=== PATIENT | male | born 1975 | race Caucasian/White ===

== ENCOUNTER 2019-08-11 18:46 | Emergency (ER) | payer BC, OTHER ==
[2019-08-11] MEDS ORDERED: Naproxen 500 MG Tab PO ONE (19:03)
--- NOTE | 2019-08-11 19:06 | EDM.PDOC ---
ED HPI GENERAL MEDICAL PROBLEM - General Chief Complaint: Lower Extremity Injury/Pain Stated Complaint: LEFT LEG BROKEN Time Seen by Provider: 08/11/19 18:59 - History of Present Illness INITIAL COMMENTS - FREE TEXT/NARRATIVE: History of present illness: [] The patient was brought by police who found him on the road. He said he lives very close and was walking toward the hospital. He fell 20 minutes ago with no loss of consciousness. He is not on a blood thinner. He complains of pain in the left leg below the knee. The patient has 5 days off work and is planning to rest. He needs to know if it is broken so he knows if he can go back to work. He also complains of excruciating pain in the mid lateral left leg. Review of systems: As per history of present illness and below otherwise all systems reviewed and negative. Past medical history: As per history of present illness and as reviewed below otherwise noncontributory. Surgical history: As per history of present illness and as reviewed below otherwise noncontributory. Social history: No reported history of drug or alcohol abuse. Family history: As per history of present illness and as reviewed below otherwise noncontributory. Physical exam: General patient is in no acute distress Integument patient has superficial abrasions over the knees on both lower extremities. Musculoskeletal the patient has tenderness along the medial upper leg on the left lower extremity and tenderness with swelling at the left lateral malleolus. HEENT: Atraumatic, normocephalic, pupils reactive, negative for conjunctival pallor or scleral icterus, mucous membranes moist, throat clear, neck supple, nontender, trachea midline. Lungs: Clear to auscultation, breath sounds equal bilaterally, chest nontender. Heart: S1S2, regular, negative for clicks, rubs, or JVD. Abdomen: Soft, nondistended, nontender. Negative for masses or hepatosplenomegaly. Negative for costovertebral tenderness. Pelvis: Stable nontender. Genitourinary: Deferred. Rectal: Deferred. Extremities: Atraumatic, negative for cords or calf pain. Neurovascular unremarkable. Neuro: Awake, alert, oriented. Cranial nerves II through XII unremarkable. Cerebellum unremarkable. Motor and sensory unremarkable throughout. Exam nonfocal. Diagnostics: [] Therapeutics: [] Impression: [] Plan: [] Definitive disposition and diagnosis as appropriate pending reevaluation and review of above. Left leg Pain Score (Numeric/FACES): 10 - Related Data Allergies Allergy/AdvReac Type Severity Reaction Status Date / Time No Known Allergies Allergy Verified 08/11/19 19:01 Home Meds: Home Meds . [No Known Home Meds] 08/11/19 [History] Past Medical History - Past Health History Medical/Surgical History: Denies Medical/Surgical History HEENT History: Reports: None Cardiovascular History: Reports: None Respiratory History: Reports: None Gastrointestinal History: Reports: None Genitourinary History: Reports: None Musculoskeletal History: Reports: Back Pain, Chronic, Other (See Below) Other Musculoskeletal History: hip dislocation, hand fracture Neurological History: Reports: None Psychiatric History: Reports: Suicide Attempt, Suicidal Ideation Other Psychiatric History: age 16 for SI. Endocrine/Metabolic History: Reports: None Hematologic History: Reports: None Immunologic History: Reports: None Oncologic (Cancer) History: Reports: None Dermatologic History: Reports: None - Past Surgical History Head Surgeries/Procedures: Reports: None HEENT Surgical History: Reports: None Cardiovascular Surgical History: Reports: None Respiratory Surgical History: Reports: None GI Surgical History: Reports: None Male Surgical History: Reports: Vasectomy Endocrine Surgical History: Reports: None Neurological Surgical History: Reports: None Musculoskeletal Surgical History: Reports: None Oncologic Surgical History: Reports: None Social & Family History - Family History Family Medical History: Noncontributory Endocrine/Metabolic: Reports: Diabetes, type II - Caffeine Use Caffeine Use: Reports: Coffee Review of Systems - Review of Systems Review Of Systems: See Below ED EXAM, GENERAL - Physical Exam Exam: See Below Course - Vital Signs Last Recorded V/S: Last Vital Signs Temp 97.0 F 08/11/19 19:01 Pulse 87 08/11/19 19:01 Resp 18 08/11/19 19:01 BP 115/71 08/11/19 19:01 Pulse Ox 97 08/11/19 19:01 - Orders/Labs/Meds Orders: Active Orders 24 hr Category Date Time Status Communication Order [RC] STAT Care 08/11/19 19:42 Active DME for Discharge [COMM] Stat Oth 08/11/19 19:44 Ordered Meds: Medications Discontinued Medications Generic Name Dose Route Start Last Admin Trade Name Freq PRN Reason Stop Dose Admin Naproxen 500 mg 08/11/19 19:03 08/11/19 19:09 Naprosyn PO 08/11/19 19:04 500 mg ONETIME ONE Administration - Radiology Interpretation Free Text/Narrative:: The fibular fracture is noted by the radiologist is seen in the proximal fibula that extends about more than one third of the distance distally. Is nondisplaced. To me the medial joint is slightly widened making this a high probability of a Maisonnneuve fracture. Discussed with Dr. Martin on orthopedics and he agreed to follow-up the patient in 4 days. Discharged with a long leg splint and crutches. Splint was checked after application and it is properly placed neurovascular structures intact with pink toes that he can feel. Patient understands importance of having his help him so he is nonweightbearing and follow him up in 4 days before he goes back to work. Departure - Departure Time of Disposition: 19:57 Disposition: Home, Self-Care 01 Condition: Good Clinical Impression: Maisonneuve fracture, Fracture of fibula - Discharge Information Instructions: Crutch Use, Adult, [id number], Cast or Splint Care, Adult, Easy -to-Read Referrals: Filippo Hernandez MD [Primary Care Provider] - Meño Martin MD [Physician] - 08/16/19 (Dr. Martin wanted to call the office and be seen on Thursday of next week and 4 days.) Forms: ED Department Discharge Sepsis Event Note - Evaluation Sepsis Screening Result: No Definite Risk - Focused Exam Vital Signs: Vital Signs Temp Pulse Resp BP Pulse Ox 08/11/19 19:01 97.0 F 87 18 115/71 97 Date Exam was Performed: 08/11/19 Time Exam was Performed: 20:01 - My Orders Last 24 Hours: My Active Orders 08/11/19 19:42 Communication Order [RC] STAT 08/11/19 19:44 DME for Discharge [COMM] Stat - Assessment/Plan Last 24 Hours: My Active Orders 08/11/19 19:42 Communication Order [RC] STAT 08/11/19 19:44 DME for Discharge [COMM] Stat
--- NOTE | 2019-08-11 19:40 | CR ---
Left tibia and fibula: AP and lateral views left tibia and fibula were obtained. Oblique nondisplaced fracture is identified within the proximal fibula involving the proximal diaphysis and metaphysis. No additional fracture or other bony abnormality is appreciated. Impression: 1. Proximal fibular fracture as noted above. Diagnostic code #3 Study was dictated in MDT
--- NOTE | 2019-08-11 19:40 | CR ---
Left ankle: 4 views left ankle were obtained. Ankle mortise is symmetric. No fracture, dislocation or other bony abnormality is seen. Impression: 1. No abnormality is identified on left ankle study. Diagnostic code #1 Study was dictated in MDT
[2019-08-11 20:25] VITALS: BP 120/78; PULSE 76
== END 2019-08-11 20:26 | disposition home or self-care (01) ==
LOC: MW.ED 18:46
DX: S82.862A Displaced Maisonneuve's fracture of left leg, initial encounter for closed fracture (principal); S82.832A Other fracture of upper and lower end of left fibula, initial encounter for closed fracture; S80.212A Abrasion, left knee, initial encounter; S80.211A Abrasion, right knee, initial encounter; W10.9XXA Fall (on) (from) unspecified stairs and steps, initial encounter
CPT/HCPCS: 29505; 73590; 73610; 99283; A9270; 99282

== ENCOUNTER 2020-09-11 12:42 | Emergency (ER) | payer SELFPAY ==
[2020-09-11] MEDS ORDERED: Morphine 4 MG/ML Syringe IVPUSH ONE (12:50)
[2020-09-11] MEDS ORDERED: Ondansetron 4 MG/2 ML SDV IVPUSH ONE ×2 (12:50→12:51)
[2020-09-11] MEDS ORDERED: Sodium Chloride 0.9% 10 ML Syringe FLUSH PRN (12:51)
[2020-09-11] MEDS ORDERED: Famotidine 20 MG/2 ML SDV IVPUSH ONE (12:51)
[2020-09-11] MEDS ORDERED: Aspirin 81 MG Tab.Chew PO ONE (12:51)
[2020-09-11] MEDS ORDERED: Sodium Chloride 0.9% 2.5 ML Syringe FLUSH PRN (12:51)
[2020-09-11] MEDS ORDERED: LORazepam 2 MG/ML SDV IVPUSH ONE (12:51)
[2020-09-11] MEDS ORDERED: Nitroglycerin 0.4 MG Tab.SL SL PRN (12:51)
[2020-09-11] MEDS ORDERED: Sodium Chloride 0.9% 1,000 ML IV ONE (12:51)
[2020-09-11] MEDS: Nitroglycerin 0.4 MG Tab.SL SL PRN ×2 (12:54→13:07)
[2020-09-11] MEDS: Morphine 4 MG/ML Syringe IVPUSH ONE ×2 (12:58→15:18)
[2020-09-11] MEDS ORDERED: Tenecteplase 50 MG Kit ONE (12:59)
[2020-09-11] MEDS ORDERED: Heparin Sodium 5,000 Units/ML Vial ONE (13:11)
[2020-09-11] MEDS ORDERED: Heparin Sodium/0.45% NaCl 500 ML ONE (13:11)
[2020-09-11] MEDS ORDERED: Clopidogrel 75 MG Tab ONE (13:11)
[2020-09-11] MEDS ORDERED: Heparin Sodium 5,000 Units/ML Vial IVPUSH ONE (13:13)
[2020-09-11] MEDS ORDERED: Heparin Sodium/0.45% NaCl 500 ML IV SCH (13:15)
--- NOTE | 2020-09-11 13:29 | EDM.PDOC ---
ED HPI GENERAL MEDICAL PROBLEM - General Chief Complaint: Chest Pain Time Seen by Provider: 09/11/20 12:51 - History of Present Illness INITIAL COMMENTS - FREE TEXT/NARRATIVE: HISTORY AND PHYSICAL: History of present illness: This is a 45-year-old gentleman with no significant history of hypertension, diabetes, liver, lung, kidney problems and no prior history of coronary disease, no history of CVA or strokes, no history of peptic ulcer disease, no prior bleeding issues or recent surgeries who presents to the ER today with severe midsternal chest pain with some radiation to his left arm and associated shortness of breath that is been intermittent for approximately 12 hours. Patient reports that the pain recurred again today so came to the ED for further evaluation. Patient denies any recent fevers, shakes, chills, and vomiting, diarrhea, dysuria, frequency, urgency, hematuria, melena, bright red blood per rectum, hematemesis. Patient does complain of some nausea, shortness of breath. Patient denies any diaphoresis. Patient reports of a history of high cholesterol and intermittent hypertension. Patient is on any medications at this time. Patient reports he smokes significant mount of tobacco daily. Patient denies any alcohol or drug use. Patient is visibly denied any methamphetamine or cocaine use. Patient denies any use of Viagra or other erectile dysfunction drugs. Review of systems: As per history of present illness and below otherwise all systems reviewed and negative. Past medical history: As per history of present illness and as reviewed below otherwise noncontributory. Surgical history: As per history of present illness and as reviewed below otherwise noncontributory. Social history: No reported history of drug abuse. Family history: As per history of present illness and as reviewed below otherwise noncontributory. Physical exam: This patient was seen and evaluated during the 2019 SARS-CoV-2 novel coronavirus pandemic period. Community viral transmission is ongoing at time of this encounter and the emergency department is operating under pandemic response procedures. Constitutional: Patient is oriented to person, place, and time. Appears well- developed and well-nourished. No distress. HEENT: Moist mucous membranes Head: Normocephalic and atraumatic Eyes: Right eye exhibits no discharge. Left eye exhibits no discharge. No scleral icterus Neck: Normal range of motion. No tracheal deviation present. Cardiovascular: Normal rate and regular rhythm. Regular rate and rhythm Pulmonary: Effort normal, no respiratory distress. No wheezing rales or rhonchi Abdominal: No distention Musculoskeletal: Normal range of motion. No clubbing cyanosis or edema Neurologic: Alert and oriented to person, place and time. Skin: [place], warm and dry. Psychiatric: Normal mood and affect. Behavior is normal. Judgment and thought content normal. Nursing note and vital signs have been reviewed Diagnostics: EKG #1: EKG: As interpreted by ER physician: Wilner: Nonspecific ST-T wave abnormalities Normal axis Patient with ST segment elevation in the inferior leads consistent with acute inferior wall IL. Sinus tachycardia with heart rate of 104. EKG #2: Status post TNKase, morphine, aspirin, nitroglycerin EKG: As interpreted by ER physician: Wilner: Nonspecific ST-T wave abnormalities Normal axis Improved ST elevations in 2 3 and aVF Normal sinus rhythm heart rate of 97 Chest Xray: Normal cardiac silhouette No infiltrates or effusions identified. No PTX No evidence of acute bony fracture. As interpreted by ER MD: Wilner mediastinum within normal limits Therapeutics: See below Assessment and plan: This is a 45-year-old gentleman who presents ER today with a EKG consistent with an inferior wall IL. Patient reports his pain started approximately 12 hours ago and has been waxing and waning but got much worse prior to arrival. Upon arrival to the ED, EKG to confirm that the patient was having a STEMI. IV x2 were placed as well as 2 L of nasal cannula. Patient was placed on the monitor. Patient was given sublingual nitroglycerin every 5 minutes x3 and reevaluated. Patient was given aspirin 325 mg p.o. Patient was also given morphine 4 mg IV x2 as well as Zofran to assist with his pain and discomfort in his chest and management of his STEMI. Case has been discussed with [facility] to transfer patient intervention. Case was discussed with Dr. Garcia who is agreed to assist us with excepting patient for transfer. Given patient's current status and transfer time, patient will be started on TNKase protocol. Patient will be given Plavix 300 mg as well as heparin in addition to the TNKase. Critical Care: The high probability of sudden, clinically significant deterioration in the patient's condition required the highest level of my prepar edness to intervene urgently. The services I provided to this patient were to treat and/or prevent clinically significant deterioration. Services included the following: chart data review, reviewing nursing notes and/or old charts, documentation time, jewelry consultant collaboration regarding findings and treatment options, medication orders and management, direct patient care, vital sign assessments and ordering, interpreting and reviewing diagnostic studies/lab tests. Aggregate critical care time includes only time during which I was engaged inwork directly related to the patient's care, as described above, whether at the bedside or elsewhere in the Emergency Department. It did not include time spent performing other reported procedures or the services of residents, students, nurses or physician assistants. Critical Care Time: 35 minutes Procedure note: TNKase 45 mg IV push over [address] Buchanan. Definitive disposition and diagnosis as appropriate pending reevaluation and r tc of above. chest Pain Score (Numeric/FACES): 10 - Related Data Allergies Allergy/AdvReac Type Severity Reaction Status Date / Time No Known Allergies Allergy Verified 09/11/20 12:49 Home Meds: Home Meds . [No Known Home Meds] 08/11/19 [History] Past Medical History - Past Health History Medical/Surgical History: Denies Medical/Surgical History HEENT History: Reports: None Cardiovascular History: Reports: None Respiratory History: Reports: None Gastrointestinal History: Reports: None Genitourinary History: Reports: None Musculoskeletal History: Reports: Back Pain, Chronic, Other (See Below) Other Musculoskeletal History: hip dislocation, hand fracture Neurological History: Reports: None Psychiatric History: Reports: Suicide Attempt, Suicidal Ideation Other Psychiatric History: age 16 for SI. Endocrine/Metabolic History: Reports: None Hematologic History: Reports: None Immunologic History: Reports: None Oncologic (Cancer) History: Reports: None Dermatologic History: Reports: None - Infectious Disease History Infectious Disease History: Reports: Chicken Pox - Past Surgical History Head Surgeries/Procedures: Reports: None HEENT Surgical History: Reports: None Cardiovascular Surgical History: Reports: None Respiratory Surgical History: Reports: None GI Surgical History: Reports: None Male Surgical History: Reports: Vasectomy Endocrine Surgical History: Reports: None Neurological Surgical History: Reports: None Musculoskeletal Surgical History: Reports: None Oncologic Surgical History: Reports: None Social & Family History - Family History Family Medical History: No Pertinent Family History Endocrine/Metabolic: Reports: Diabetes, type II - Caffeine Use Caffeine Use: Reports: Coffee ED ROS GENERAL - Review of Systems Review Of Systems: See Below ED EXAM, GENERAL - Physical Exam Exam: See Below Course - Vital Signs Last Recorded V/S: Last Vital Signs Temp 97.4 F 09/11/20 12:44 Pulse 112 H 09/11/20 12:44 Resp 18 09/11/20 12:44 BP 113/62 09/11/20 13:07 Pulse Ox 99 09/11/20 12:44 - Orders/Labs/Meds Orders: Active Orders 24 hr Category Date Time Status EKG Documentation Completion [RC] AM Care 09/11/20 12:51 Active Chest 1V Frontal [CR] Stat Exams 09/11/20 13:05 Taken COMPREHENSIVE METABOLIC PN,CMP [CHEM] Stat Lab 09/11/20 12:47 Received CORONAVIRUS COVID-19 WOODY [MOLEC] Stat Lab 09/11/20 12:51 Ordered LIPASE [CHEM] Stat Lab 09/11/20 12:47 Received TROPONIN I [CHEM] Stat Lab 09/11/20 12:47 Received Heparin Sodium/0.45% NaCl [Heparin 25,000 Units in 1/2 Med 09/11/20 13:15 Ordered NS 500 ML] 500 ml IV TITRATE Nitroglycerin [Nitrostat] Med 09/11/20 12:50 Active 0.4 mg SL Q5M PRN Nitroglycerin [Nitrostat] Med 09/11/20 12:51 Active 0.4 mg SL Q5M PRN Sodium Chloride 0.9% [Normal Saline] 1,000 ml Med 09/11/20 12:51 Active IV .Bolus Sodium Chloride 0.9% [Saline Flush] Med 09/11/20 12:51 Active 10 ml FLUSH ASDIRECTED PRN Sodium Chloride 0.9% [Saline Flush] Med 09/11/20 12:51 Active 2.5 ml FLUSH ASDIRECTED PRN Saline Lock Insert [OM.PC] Stat Oth 09/11/20 12:51 Ordered Medication Orders Sodium Chloride (Normal Saline) 1,000 mls @ 999 mls/hr IV .Bolus ONE Stop: 09/11/20 13:51 Last Admin: 09/11/20 12:56 Dose: 999 mls/hr Documented by: ANDREW Heparin Sodium/Sodium Chloride (Heparin 25,000 Units In 1/2 Ns 500 Ml) 500 mls @ 21.24 mls/hr IV TITRATE ARABELLA; Protocol Nitroglycerin (Nitroglycerin 0.4 Mg Tab.Sl) 0.4 mg SL Q5M PRN PRN Reason: Chest Pain Last Admin: 09/11/20 13:07 Dose: 0.4 mg Documented by: Admin: 09/11/20 12:54 Dose: 0.4 mg Documented by: ANDREW Nitroglycerin (Nitroglycerin 0.4 Mg Tab.Sl) 0.4 mg SL Q5M PRN PRN Reason: Chest Pain Sodium Chloride (Sodium Chloride 0.9% 10 Ml Syringe) 10 ml FLUSH ASDIRECTED PRN PRN Reason: Keep Vein Open Last Admin: 09/11/20 12:57 Dose: 10 ml Documented by: ANDREW Sodium Chloride (Sodium Chloride 0.9% 2.5 Ml Syringe) 2.5 ml FLUSH ASDIRECTED PRN PRN Reason: Keep Vein Open Last Admin: 09/11/20 12:58 Dose: 2.5 ml Documented by: ANDREW Labs: Laboratory Tests 09/11/20 09/11/20 Range/Units 12:47 12:47 WBC 13.47 H (4.0-11.0) K/uL RBC 4.37 L (4.50-5.90) M/uL Hgb 13.7 (13.0-17.0) g/dL Hct 40.1 (38.0-50.0) % MCV 91.8 (80.0-98.0) fL MCH 31.4 (27.0-32.0) pg MCHC 34.2 (31.0-37.0) g/dL RDW Std Deviation 43.9 (28.0-62.0) fl RDW Coeff of Nona 13 (11.0-15.0) % Plt Count 328 (150-400) K/uL MPV 8.80 (7.40-12.00) fL Neut % (Auto) 75.4 (48.0-80.0) % Lymph % (Auto) 11.7 L (16.0-40.0) % Ness % (Auto) 10.3 (0.0-15.0) % Eos % (Auto) 2.4 (0.0-7.0) % Baso % (Auto) 0.2 (0.0-1.5) % Neut # (Auto) 10.2 H (1.4-5.7) K/uL Lymph # (Auto) 1.6 (0.6-2.4) K/uL Ness # (Auto) 1.4 H (0.0-0.8) K/uL Eos # (Auto) 0.3 (0.0-0.7) K/uL Baso # (Auto) 0.0 (0.0-0.1) K/uL Nucleated RBC % 0.0 /100WBC Nucleated RBCs # 0 K/uL INR 0.98 APTT 25.7 (18.6-31.3) SEC D-Dimer, Quantitative 0.36 (0.0-0.50) mg/L FEU Meds: Medications Generic Name Dose Route Start Last Admin Trade Name Freq PRN Reason Stop Dose Admin Sodium Chloride 1,000 mls @ 999 mls/hr 09/11/20 12:51 09/11/20 12:56 Normal Saline IV 09/11/20 13:51 999 mls/hr .Bolus ONE Administration Heparin Sodium/Sodium Chloride 500 mls @ 21.24 mls/hr 09/11/20 13:15 Heparin 25,000 Units In 1/2 Ns 500 Ml IV TITRATE ARABELLA Protocol 12 UNITS/KG/HR Nitroglycerin 0.4 mg 09/11/20 12:50 09/11/20 13:07 Nitroglycerin 0.4 Mg Tab.Sl SL 0.4 mg Q5M PRN Administration Chest Pain Nitroglycerin 0.4 mg 09/11/20 12:51 Nitroglycerin 0.4 Mg Tab.Sl SL Q5M PRN Chest Pain Sodium Chloride 10 ml 09/11/20 12:51 09/11/20 12:57 Sodium Chloride 0.9% 10 Ml Syringe FLUSH 10 ml ASDIRECTED PRN Administration Keep Vein Open Sodium Chloride 2.5 ml 09/11/20 12:51 09/11/20 12:58 Sodium Chloride 0.9% 2.5 Ml Syringe FLUSH 2.5 ml ASDIRECTED PRN Administration Keep Vein Open Discontinued Medications Generic Name Dose Route Start Last Admin Trade Name Freq PRN Reason Stop Dose Admin Aspirin 324 mg 09/11/20 12:51 09/11/20 12:57 Aspirin 81 Mg Tab.Chew PO 09/11/20 12:52 324 mg ONETIME ONE Administration Clopidogrel Bisulfate Confirm 09/11/20 13:11 Clopidogrel 75 Mg Tab Administered 09/11/20 13:12 Dose 300 mg .ROUTE .STK-MED ONE Famotidine 20 mg 09/11/20 12:51 09/11/20 12:57 Famotidine 20 Mg/2 Ml Sdv IVPUSH 09/11/20 12:52 20 mg ONETIME ONE Administration Heparin Sodium (Porcine) Confirm 09/11/20 13:11 Heparin Sodium 5,000 Units/Ml Vial Administered 09/11/20 13:12 Dose 5,000 units .ROUTE .STK-MED ONE Heparin Sodium (Porcine) 4,000 units 09/11/20 13:13 Heparin Sodium 5,000 Units/Ml Vial IVPUSH 09/11/20 13:14 BOLUS ONE Protocol Heparin Sodium/Sodium Chloride Confirm 09/11/20 13:11 Heparin 25,000 Units In 1/2 Ns 500 Ml Administered 09/11/20 13:12 Dose 500 mls @ as directed .ROUTE .STK-MED ONE Lorazepam 1 mg 09/11/20 12:51 09/11/20 12:57 Lorazepam 2 Mg/Ml Sdv IVPUSH 09/11/20 12:52 1 mg ONETIME ONE Administration Morphine Sulfate 4 mg 09/11/20 12:50 09/11/20 12:54 Morphine 4 Mg/Ml Syringe IVPUSH 09/11/20 12:51 4 mg ONETIME ONE Administration Morphine Sulfate 4 mg 09/11/20 12:51 09/11/20 12:58 Morphine 4 Mg/Ml Syringe IVPUSH 09/11/20 12:52 Not Given ONETIME ONE Ondansetron HCl 4 mg 09/11/20 12:50 09/11/20 12:54 Ondansetron 4 Mg/2 Ml Sdv IVPUSH 09/11/20 12:51 4 mg ONETIME ONE Administration Ondansetron HCl 4 mg 09/11/20 12:51 09/11/20 12:58 Ondansetron 4 Mg/2 Ml Sdv IVPUSH 09/11/20 12:52 Not Given ONETIME ONE Tenecteplase Confirm 09/11/20 12:59 Tenecteplase 50 Mg Kit Administered 09/11/20 13:00 Dose 50 mg .ROUTE .STK-MED ONE Departure - Departure Time of Disposition: 13:30 Disposition: DC/Tfer to Acute Hospital 02 Condition: Serious Clinical Impression: Acute myocardial infarction Qualifiers: Myocardial infarction type: ST elevation myocardial infarction Involved coronary artery: other inferior wall coronary artery Qualified Code(s): I21.19 - ST elevation (STEMI) myocardial infarction involving other coronary artery of inferior wall - Discharge Information Sepsis Event Note (ED) - Evaluation Sepsis Screening Result: No Definite Risk - Focused Exam Vital Signs: Vital Signs Temp Pulse Resp BP BP Pulse Ox 09/11/20 13:07 113/62 09/11/20 12:54 125/76 09/11/20 12:44 97.4 F 112 H 18 126/67 99 - My Orders Last 24 Hours: My Active Orders 09/11/20 12:47 COMPREHENSIVE METABOLIC PN,CMP [CHEM] Stat LIPASE [CHEM] Stat TROPONIN I [CHEM] Stat 09/11/20 12:50 Nitroglycerin [Nitrostat] 0.4 mg SL Q5M PRN 09/11/20 12:51 EKG Documentation Completion [RC] AM CORONAVIRUS COVID-19 WOODY [MOLEC] Stat Nitroglycerin [Nitrostat] 0.4 mg SL Q5M PRN Sodium Chloride 0.9% [Normal Saline] 1,000 ml IV .Bolus Sodium Chloride 0.9% [Saline Flush] 10 ml FLUSH ASDIRECTED PRN Sodium Chloride 0.9% [Saline Flush] 2.5 ml FLUSH ASDIRECTED PRN Saline Lock Insert [OM.PC] Stat 09/11/20 13:05 Chest 1V Frontal [CR] Stat 09/11/20 13:15 Heparin Sodium/0.45% NaCl [Heparin 25,000 Units in 1/2 NS 500 ML] 500 ml IV TITRATE - Assessment/Plan Last 24 Hours: My Active Orders 09/11/20 12:47 COMPREHENSIVE METABOLIC PN,CMP [CHEM] Stat LIPASE [CHEM] Stat TROPONIN I [CHEM] Stat 09/11/20 12:50 Nitroglycerin [Nitrostat] 0.4 mg SL Q5M PRN 09/11/20 12:51 EKG Documentation Completion [RC] AM CORONAVIRUS COVID-19 WOODY [MOLEC] Stat Nitroglycerin [Nitrostat] 0.4 mg SL Q5M PRN Sodium Chloride 0.9% [Normal Saline] 1,000 ml IV .Bolus Sodium Chloride 0.9% [Saline Flush] 10 ml FLUSH ASDIRECTED PRN Sodium Chloride 0.9% [Saline Flush] 2.5 ml FLUSH ASDIRECTED PRN Saline Lock Insert [OM.PC] Stat 09/11/20 13:05 Chest 1V Frontal [CR] Stat 09/11/20 13:15 Heparin Sodium/0.45% NaCl [Heparin 25,000 Units in 1/2 NS 500 ML] 500 ml IV TITRATE
--- NOTE | 2020-09-11 13:32 | CR ---
Indication: Chest Pain Comparison: Single-view chest January 04, 2020 Technique: Single AP view chest Findings: There is hyperinflation and chronic interstitial change. There is mild pulmonary vascular congestion without evidence of dense consolidation, effusion or pneumothorax. The cardiomediastinal silhouette is within normal limits. The bony thorax is grossly intact. Impression: There is hyperinflation and chronic interstitial changes with mild pulmonary vascular congestion. Dictated by Marcus Palomares MD @ 09/11/2020 1:31:[address] Marcus Palomares @ Sep 11 2020 1:31PM
[2020-09-11 13:34] LABS: BLOOD UREA NITROGEN,BUN 17 mg/dL (7.0-18.0); CARBON DIOXIDE,CO2 27.8 mmol/L (21.0-32.0); CHLORIDE,CL 101 mmol/L (98-107); GLUCOSE RANDOM 101 mg/dL (74-106); LIPASE 677 U/L (73-393); SODIUM,NA 136 mmol/L (136-148)
[2020-09-11 13:59] VITALS: BP 100/65; PULSE 95
== END 2020-09-11 13:27 ==
LOC: MW.ED 12:42
DX: I21.19 ST elevation (STEMI) myocardial infarction involving other coronary artery of inferior wall (principal)
CPT/HCPCS: 36415; 51702; 71045; 80053; 83690; 84484; 85025; 85379; 85610; 85730; 93005; 96374; 96375; 99285; A9270; J1644; J2060; J2270; J2405; J3101; J3490; J7030

== ENCOUNTER 2024-12-31 20:12 | Emergency (ER) | payer BC, OTHER ==
[2024-12-31] MEDS ORDERED: Sodium Chloride 0.9% 10 ML Syringe FLUSH PRN (20:14)
[2024-12-31] MEDS ORDERED: Sodium Chloride 0.9% 2.5 ML Syringe FLUSH PRN (20:14)
[2024-12-31 20:32] LABS: BASOPHILS ABSOLUTE AUTO 0.04 K/uL (0.00-0.20); BASOPHILS PERCENT AUTO 0.7 % (0.0-1.0); EOSINOPHILS ABSOLUTE AUTO 0.15 K/uL (0.00-0.45); EOSINOPHILS PERCENT AUTO 2.5 % (0.0-6.0); IMMATURE GRAN ABSOLUTE AUTO 0.01 K/uL (0.00-0.05); IMMATURE GRAN PERCENT AUTO 0.2 % (0.0-0.4); LYMPHOCYTES ABSOLUTE AUTO 1.58 K/uL (1.00-4.80); LYMPHOCYTES PERCENT AUTO 26.6 % (24.0-44.0); MEAN PLATELET VOLUME 8.5 fL (9.4-12.4); MONOCYTES ABSOLUTE AUTO 0.64 K/uL (0.00-0.80); MONOCYTES PERCENT AUTO 10.8 % (0.0-8.0); NEUTROPHILS ABSOLUTE AUTO 3.53 K/uL (1.80-7.70); NEUTROPHILS PERCENT AUTO 59.2 % (41.0-71.0); NRBC ABSOLUTE 0.00 K/uL (0.00-0.02); NRBC PERCENT 0.0 /100WBC (0.0-0.2); PLATELET COUNT,PLT 317 K/uL (150-400); RED BLOOD CELL COUNT 4.67 M/uL (4.52-5.90); WHITE BLOOD CELL COUNT,WBC 5.95 K/uL (3.9-11.3)
[2024-12-31 20:49] LABS: INR 1.11 (0.86-1.11); PTT,PARTIAL THROMBOPLSTIN TIME 27.3 SEC (23.9-30.7)
[2024-12-31 21:09] LABS: A/G RATIO 1.0 (0.9-1.6); ALANINE AMINOTRANSFERASE,ALT 15.0 IU/L (14-63); ASPARTATE AMNIOTRANSFERASE,AST 16.0 IU/L (15-37); BILIRUBIN TOTAL 0.2 mg/dL (0.2-1.0); BLOOD UREA NITROGEN,BUN 20.0 mg/dL (7.0-18.0); CARBON DIOXIDE,CO2 29.8 mmol/L (21.0-32.0); CHLORIDE,CL 105.0 mmol/L (98-107); CREATININE 1.0 mg/dL (0.8-1.3); EST CRCL DRUG DOSING (CG) 92.26 mL/min; GLUCOSE RANDOM 115.0 mg/dL (74-106); POTASSIUM,K 4.0 mmol/L (3.5-5.1); PROTEIN TOTAL,TP 7.5 g/dL (6.4-8.2); SODIUM,NA 141.0 mmol/L (136-148)
[2024-12-31 21:12] LABS: ESTIMATED GFR 92.0 mL/min (>60)
[2024-12-31] MEDS: Dexamethasone Sod Phos Preservative Free 10 MG/ML Vial IVPUSH ONE (22:01)
[2024-12-31 22:04] VITALS: BP 131/80; PULSE 61
== END 2024-12-31 22:07 ==
LOC: MW.ED 20:12
DX: M54.12 Radiculopathy, cervical region (principal)
CPT/HCPCS: 36415; 71045; 80053; 83690; 83735; 84484; 85025; 85610; 85730; 93005; 96361; 96374; 96375; 99285; A9270; J1100; J2270; J7030; 93010; 99284